=== PATIENT | female | born 1975 | race Caucasian/White ===

== ENCOUNTER 2017-02-24 16:52 | Emergency (ER) | payer BC ==
[2017-02-24 17:01] VITALS: BP 145/92
[2017-02-24] MEDS ORDERED: Ibuprofen TAB* 600 MG PO ONE (17:09)
--- NOTE | 2017-02-24 17:50 | RAD ---
Indication: Right ankle injury. 3 views of the right ankle demonstrates no fracture. Soft tissue swelling is noted laterally. Inferior and posterior calcaneal spur is noted. IMPRESSION: No fracture is identified. Inferior and posterior calcaneal spur is noted.
--- NOTE | 2017-02-24 18:58 | UC ---
Lower Extremity/Ankle HPI - HPI Summary HPI Summary: twisted right ankle about 1 hour prior to arrival - History of Current Complaint Chief Complaint: UCLowerExtremity Stated Complaint: ANKLE INJURY Time Seen by Provider: 02/24/17 17:15 Hx Obtained From: Patient Hx Last Menstrual Period: 01/31/17 ?: No Onset/Duration: Sudden Onset Severity Initially: Mild Severity Currently: Mild Pain Intensity: 1 Pain Scale Used: Adult Non Verbal Aggravating Factor(s): Standing, Ambulation Alleviating Factor(s): Rest, Elevation Able to Bear Weight: Yes - with pain and limp - Allergies/Home Medications Allergies/Adverse Reactions: Allergies Allergy/AdvReac Type Severity Reaction Status Date / Time No Known Allergies Allergy Verified 02/24/17 17:01 PMH/Surg Hx/FS Hx/Imm Hx Previously Healthy: Yes - Surgical History Surgical History: Yes Surgery Procedure, Year, and Place: - Family History Known Family History: Positive: None - Social History Occupation: Employed Full-time Lives: With Family Alcohol Use: None Substance Use Type: None Smoking Status (MU): Never Smoked Tobacco Have You Smoked in the Last Year: No - Immunization History Most Recent Influenza Vaccination: 2016 Review of Systems Constitutional: Negative Skin: Negative Eyes: Negative ENT: Negative Respiratory: Negative Cardiovascular: Negative Gastrointestinal: Negative Genitourinary: Negative Motor: Negative Neurovascular: Negative Musculoskeletal: Arthralgia - lateral right ankle Neurological: Negative Psychological: Negative Is Patient Immunocompromised?: No All Other Systems Reviewed And Are Negative: Yes Physical Exam Triage Information Reviewed: Yes Appearance: Well-Appearing, No Pain Distress, Well-Nourished Vital Signs: Initial Vital Signs Temp 99.6 F 02/24/17 16:56 Pulse 85 02/24/17 16:56 Resp 14 02/24/17 16:56 BP 145/92 02/24/17 16:56 Pulse Ox 100 02/24/17 16:56 Vital Signs Reviewed: Yes Eye Exam: Normal Eyes: Positive: Conjunctiva Clear ENT Exam: Normal ENT: Positive: Normal ENT inspection, Hearing grossly normal. Negative: Nasal congestion, Nasal drainage, Tonsillar swelling, Tonsillar exudate, Trismus, Muffled voice, Hoarse voice Dental Exam: Normal Neck exam: Normal Neck: Positive: Supple, Nontender Respiratory Exam: Normal Respiratory: Positive: Chest non-tender, No respiratory distress, No accessory muscle use Cardiovascular Exam: Normal Cardiovascular: Positive: RRR, Pulses Normal, Brisk Capillary Refill Musculoskeletal Exam: Normal Musculoskeletal: Positive: ROM Intact, No Edema, Strength Limited @ - right ankle, ROM Limited @ Neurological Exam: Normal Neurological: Positive: Alert, Muscle Tone Normal Psychological Exam: Normal Skin Exam: Normal Diagnostics - Radiology No standard instances Xray Interpretation: No Acute Changes Radiology Interpretation Completed By: ED Physician, Radiologist Lower Extremity Course/Dx - Course Course Of Treatment: opal, gel, crutches, ibuprofen, rest, follow with ortho prn - Differential Dx/Diagnosis Provider Diagnoses: right ankle sprain Discharge - Discharge Plan Condition: Stable Disposition: HOME Patient Education Materials: Ankle Sprain (ED), Crutch Instructions (ED), Hypertension (ED), RICE Therapy (ED) Forms: *Work Release Referrals: Missy Gurrola MD [Primary Care Provider] - 1 Week Kaushal Chavis MD [Medical Doctor] - 4 Days
== END 2017-02-24 18:10 | disposition home or self-care (01) ==
LOC: UCEAST 16:52
DX: S93.401A Sprain of unspecified ligament of right ankle, initial encounter (principal); X50.1XXA Overexertion from prolonged static or awkward postures, initial encounter; Y92.9 Unspecified place or not applicable
CPT/HCPCS: 99213; A9270-GY; G0463